=== PATIENT | female | born 1985 | race Caucasian/White ===

== ENCOUNTER 2017-07-19 12:09 | Emergency (ER) | payer OTHER ==
[2017-07-19 12:27] VITALS: BP 109/66
--- NOTE | 2017-07-19 13:21 | ED ---
Throat Pain/Nasal Congestion - HPI Summary HPI Summary: Pt presents with complaint of progressive max sinus pressure, L>R Pt reports ear fullness and inability to equalized. No fevers, chills. + fatigue. + dental achiness. No cough, sob No chest pain. No abd pain. No nausea, vomiting. Pt has taken Advil cold and sinus as well as Claritin and additional motrin without relief. Pt reports has dental achiness and increased pressure in left ear. No drainage Pt's SO with URI last week. Pt states has overwhelming head pressure and feels like it might "explode" Pt's medications reviewed at this visit - History of Current Complaint Chief Complaint: UCRespiratory Time Seen by Provider: 07/19/17 12:36 Hx Obtained From: Patient Onset/Duration: Gradual Onset, Lasting Days Severity: Moderate - Allergies/Home Medications Allergies/Adverse Reactions: Allergies Allergy/AdvReac Type Severity Reaction Status Date / Time No Known Allergies Allergy Verified 07/19/17 12:26 Home Medications: Home Medications Ibuprofen TAB* [Motrin TAB* 800 MG] 800 mg PO ONCE 07/19/17 [History Confirmed 07/19/17] Pseudoephedrine-Ibuprofen [Advil Cold & Sinus] 1 cap PO ONCE 07/19/17 [History Confirmed 07/19/17] PMH/Surg Hx/FS Hx/Imm Hx Previously Healthy: Yes Endocrine/Hematology History: Denies: Hx Diabetes, Hx Thyroid Disease Respiratory History: Denies: Hx Asthma - Surgical History Surgery Procedure, Year, and Place: tonsils Infectious Disease History: No Infectious Disease History: Denies: Traveled Outside the [place] in Last 30 Days - Family History Known Family History: Positive: Other - sinus, allergy - Social History Occupation: Employed Full-time Lives: With Family Alcohol Use: Weekly Substance Use Type: Reports: None Smoking Status (MU): Never Smoked Tobacco Review of Systems Constitutional: Negative Eyes: Negative Positive: Other - sinus pressure, ear fullness, dental achiness Cardiovascular: Negative Respiratory: Negative Gastrointestinal: Negative Genitourinary: Negative Musculoskeletal: Negative Skin: Negative Neurological: Negative Psychological: Normal All Other Systems Reviewed And Are Negative: Yes Physical Exam Triage Information Reviewed: Yes Vital Signs On Initial Exam: Initial Vitals Temp Pulse Resp BP Pulse Ox 98.7 F 79 18 109/66 98 07/19/17 12:21 07/19/17 12:21 07/19/17 12:21 07/19/17 12:21 07/19/17 12:21 Vital Signs Reviewed: Yes Appearance: Positive: Well-Nourished, Pain Distress - nasal congestion, appears uncomfortable Skin: Positive: Warm, Dry Head/Face: Positive: Normal Head/Face Inspection Eyes: Positive: EOMI, SONIDO, Conjunctiva Clear, Conjunctiva Inflammed ENT: Positive: TM bulging - left TM - thick, white effusion buldging right TM - scant fluid, no erythema turbinates inflammed and boggy + thick PND mmoist + TTP left max/frontal sinus. Negative: TMs normal Neck: Positive: Supple, Nontender, No Lymphadenopathy Respiratory/Lung Sounds: Positive: Clear to Auscultation, Breath Sounds Present , Decreased Breath Sounds Cardiovascular: Positive: Normal, RRR Abdomen Description: Positive: Nontender, No Organomegaly, Soft Bowel Sounds: Positive: Present Musculoskeletal: Positive: Normal, Strength/ROM Intact Neurological: Positive: Normal, Sensory/Motor Intact, Alert, Oriented to Person Place, Time Psychiatric: Positive: Normal AVPU Assessment: Alert - [place] Coma Scale Best Eye Response: 4 - Spontaneous Best Motor Response: 6 - Obeys Commands Best Verbal Response: 5 - Oriented Diagnostics - Vital Signs Vital Signs Temp Pulse Resp BP Pulse Ox 07/19/17 12:21 98.7 F 79 18 109/66 98 - Laboratory Lab Statement: Any lab studies that have been ordered have been reviewed, and results considered in the medical decision making process. EENT Course/Dx - Course Assessment/Plan: Pt presents with progressive max sinus pressure, ear pain and sore throat. Pt with purulent OM on left with inflammed boggy turbinate L>R. Will Rx augmentin. flonase. return precautions discussed - Diagnoses Provider Diagnoses: Sinusitis, Otitis media Discharge - Discharge Plan Condition: Stable Disposition: HOME Prescriptions: Amoxicillin PO (*) [Amoxicillin 875 MG (*)] 875 mg PO BID #20 tab Fluticasone NASAL * [Flonase *] 1 spray BOTH NARES DAILY #1 spray Patient Education Materials: Sinusitis (ED) Referrals: Esther Thomason MD [Medical Doctor] - Additional Instructions: -- After you have been on antibiotics for 2 days - change your toothbrush and your pillowcase. These infections are spread by secretions - do NOT share eating or drinking utensils - clean items you share with other people such as cell phones, computer mouse, TV remote, computer tablets, etc - stay well hydrated - drink plenty of non-alcoholic, non-caffinated beverages -Okay to alternate ibuprofen (advil, motrin) and tylenol every 3hours as needed for pain - use nasal flonase daily as prescribed - Apply moist heat to your face for pressure - contact your doctor or return with questions or concerns
== END 2017-07-19 13:38 | disposition home or self-care (01) ==
LOC: UCCORT 12:09
DX: J32.9 Chronic sinusitis, unspecified (principal); H66.92 Otitis media, unspecified, left ear
CPT/HCPCS: 99212; G0463